=== PATIENT | female | born 2000 | race Caucasian/White ===

== ENCOUNTER → 2022-03-11 | Outpatient (CLI) | payer OTHER ==
--- NOTE | 2022-03-11 15:38 | US ---
EXAMINATION TYPE: US abdomen complete DATE OF EXAM: 03/11/2022 COMPARISON: NONE CLINICAL HISTORY: R94.5 ABN LIVER FUNCTION STUDIES. Abnormal liver function studies. EXAM MEASUREMENTS: Liver Length: 15.0 cm Gallbladder Wall: 0.15 cm CBD: 0.35 cm Spleen: 13.5 cm Right Kidney: 11.4 x 4.6 x 3.6 cm Left Kidney: 11.2 x 4.2 x 4.7 cm Limited due to gas. Pancreas: Slightly limited visibility of tail. Liver: Appears wnl Gallbladder: Hyperechoic area seen within gallbladder neck versus fold: 0.3 x 0.6 x 0.4 cm. Evidence for sonographic Jones's sign: No CBD: Portions seen appear wnl. Spleen: Appears enlarged measuring 13.9 cm. Right Kidney: No hydronephrosis or masses seen Left Kidney: No hydronephrosis or masses seen Upper IVC: Appears wnl Abd Aorta: Appears wnl. Iliacs obscured by gas. IMPRESSION: 1. Splenomegaly. 2. I cannot exclude a gallstone in the gallbladder neck.
== END | disposition home or self-care (01) ==
LOC: RADUSWWP 12:47
PROVIDERS: ATTEND Family Medicine
DX: R16.1 Splenomegaly, not elsewhere classified (principal)
CPT/HCPCS: 76700

== ENCOUNTER → 2022-03-15 | Outpatient (CLI) | payer OTHER ==
--- NOTE | 2022-03-15 14:28 | CT ---
EXAMINATION TYPE: CT abdomen w con DATE OF EXAM: 03/15/2022 COMPARISON: None INDICATION: elevated liver enzymes DLP: 293.5 mGycm, Automated exposure control for dose reduction was used. CONTRAST: 100 mL of Isovue 300. Study performed with Oral Contrast TECHNIQUE: Axial images were obtained from above the diaphragm to the pubic rami in the axial plane a t 5 mm thick sections. Reconstructed images are reviewed on the computer in the coronal plane. FINDINGS: Limited CT sections are obtained the lung bases. The lung bases are clear. CT ABDOMEN: Liver: Normal Spleen: Normal Pancreas: Normal Adrenal glands: The adrenal glands are normal. Gallbladder: Normal Kidneys: No masses are evident. No hydronephrosis is present. No cysts are present. Delayed images were obtained through the kidneys, which remain unremarkable. Aorta: Normal Inferior vena cava: Normal. Equilibrium is within the colon. Small bowel loops distended with oral contrast within the field of v iew appear normal. There are loops of bowel which are incompletely distended or lack oral contrast li miting their evaluation. IMPRESSIONS: 1. Unremarkable CT abdomen. Follow-up imaging can be performed as clinically indicated.
== END | disposition home or self-care (01) ==
LOC: RADCTMAIN 12:39
PROVIDERS: ATTEND Family Medicine
DX: R74.8 Abnormal levels of other serum enzymes (principal)
CPT/HCPCS: 74160; Q9967

== ENCOUNTER → 2025-06-10 | Outpatient (CLI) | payer OTHER ==
--- NOTE | 2025-06-24 14:54 | ECHOF ---
BP: 108 / 70 HR: 63 Technical Quality: Fair 2D ECHO LV Diastolic Diameter PLAX 4.4 cm 4.2 - 5.9 / 3.9 - 5.3 cm LV Systolic Volume MOD 4C 21.2 cm LV Systolic Diameter PLAX 3.5 cm LV Ejection Fraction MOD 4C 60.7 % IVS Diastolic Thickness 0.8 cm 0.6 - 1.0 / 0.6 - 0.9 cm LV Cardiac Index MOD 4C 1162.8 cm/minm LVPW Diastolic Thickness 0.8 cm 0.6 - 1.0 / 0.6 - 0.9 cm LV Diastolic Length 4C 6.6 cm LV Relative Wall Thickness 0.4 LV Systolic Length 4C 5.3 cm RV Internal Dim ED PLAX 3.0 cm LV Diastolic Volume MOD 2C 65.8 cm LVOT Diameter 1.8 cm LV Systolic Volume MOD 2C 21.5 cm LA Systolic Diameter LX 3.1 cm 3.0 - 4.0 / 2.7 - 3.8 cm LV Ejection Fraction MOD 2C 67.4 % LV Diastolic Volume MOD BP 61.8 cm 67 - 155 / 56 - 104 cm LV Cardiac Index MOD 2C 1572.1 cm/minm LV Systolic Volume MOD BP 22.2 cm 22 - 58 / 19 - 49 cm LV Diastolic Length 2C 7.2 cm LV Ejection Fraction MOD BP 64.1 % >= 55 % LV Systolic Length 2C 5.8 cm LV Cardiac Index MOD BP 1402.5 cm/minm LA Volume 28.9 cm 18 - 58 / 22 - 52 cm LV Diastolic Volume MOD 4C 54.1 cm LA Volume Index 16.3 cm/m 16 - 28 cm/m M-MODE Aortic Root Diameter MM 2.5 cm LA Ao Ratio MM 1.2 LA Systolic Diameter MM 3.0 cm AV Cusp Separation MM 1.4 cm DOPPLER AV Peak Velocity 123.5 cm/s MV Peak Velocity 122.2 cm/s AV Peak Gradient 6.1 mmHg MV Peak Gradient 6.0 mmHg AV Mean Velocity 83.5 cm/s MV Mean Velocity 54.6 cm/s AV Mean Gradient 3.3 mmHg MV Mean Gradient 1.5 mmHg AV Velocity Time Integral 25.8 cm MV Velocity Time Integral 31.6 cm LVOT Peak Velocity 85.0 cm/s MV Area PHT 4.1 cm LVOT Peak Gradient 2.9 mmHg Mitral E Point Velocity 93.0 cm/s LVOT Velocity Time Integral 13.4 cm Mitral A Point Velocity 50.7 cm/s LVOT Stroke Volume 34.2 cm Mitral E to A Ratio 1.8 LVOT Stroke Volume Index 19.7 ml/m MV Deceleration Time 186.9 ms LVOT Cardiac Index 1212.9 cm/minm TR Peak Velocity 174.5 cm/s AV Area Cont Eq vti 1.3 cm TR Peak Gradient 12.2 mmHg AV Area Cont Eq pk 1.8 cm Left Ventricle: Left ventricular ejection fraction is estimated at 55-60%. Normal left ventricular systolic function with no obvious regional wall motion abnormalities. Left ventricular cavity size normal. Right Ventricle: Normal right ventricular size and function. Right Atrium: Normal right atrial size. No right atrial thrombus or mass seen. Left Atrium: Normal left atrial size. No left atrial thrombus or mass present. Mitral Valve: No mitral stenosis. No mitral regurgitation. Aortic Valve: Trileaflet aortic valve. No aortic valve stenosis or regurgitation. Tricuspid Valve: No tricuspid stenosis. Trace tricuspid regurgitation. Pulmonic Valve: No pulmonic stenosis. Trace pulmonic regurgitation. Pericardium: Normal pericardium. No pericardial or pleural effusion. Aorta: Normal size aortic root and proximal ascending aorta. Vessels: Normal inferior vena cava dimensions. Greater than 50% respiratory variation in the dimensions of the inferior vena cava. CONCLUSIONS normal ef MTDD
== END | disposition home or self-care (01) ==
LOC: RADECHMAIN 15:49
PROVIDERS: ATTEND Family Medicine
DX: R01.1 Cardiac murmur, unspecified (principal); I07.1 Rheumatic tricuspid insufficiency
CPT/HCPCS: 93306